=== PATIENT | male | born 1960 | race Caucasian/White ===

== ENCOUNTER 2016-10-31 12:13 | Observation (INO) | payer BC ==
--- NOTE | ~2016-10-31 | OP ---
Record Of Operation [facility] [address] [place]. [address] NAME: SEAN KIM : 62 STATUS : REG REF PAT#: [id number] AGE: 56 ADM/REG DATE : 10/31/16 MR#: [id number] REPORT SERV DATE: 10/31/16 DICTATED BY: ISHMAEL SANCHEZ DATE: 10/31/16 REPORT STATUS : Draft TRANSCRIBED BY: MODL DATE: 10/31/16 DATE OF PROCEDURE: 10/31/2016 VASCULAR PROCEDURE NOTE PROCEDURE PERFORMED: Aortogram, bilateral selective renal angiogram, left renal accessory angiogram, angioplasty and stenting of the right renal artery with placement of an 8 x 17 mm Visi-Pro stent, successful ProGlide closure of right femoral artery. HTML WEB DEVELOPER: Ishmael Sanchez M.D. INDICATION FOR THIS PROCEDURE: Hypertension, chronic kidney disease stage III. Suspected renal artery stenosis by ultrasound on the left and CT angiogram on the right. TECHNIQUE: After informed consent was obtained from Mr. Kim, he was brought to the cardiac catheterization laboratory on the afternoon of 10/31/2016 in the fasting state. Time-out was performed and correct patient and the operative plan were confirmed. Intravenous moderate sedation was used. The right coronary was prepped and draped in the usual sterile fashion. Local anesthesia was accomplished using 1% lidocaine. Using modified Seldinger technique and a micropuncture set, a micro sheath was placed in the right femoral artery with excellent arterial return. The sheath was double flushed and left in place. Femoral angiogram revealed good stick in the common femoral artery thought suitable for closure. Next, a 5-Colombian sheath was double flushed and left in place. Next, a 5- Colombian marker Flush catheter was used and a single plane abdominal aortogram was performed above the level of renal arteries. The catheter was then exchanged for a 5-Colombian SOS 2 catheter and left renal artery angiography, left accessory inferior renal angiography, and right renal angiography were performed. At that time, I decided to perform angioplasty of the right renal artery. Next, the patient was heparinized to an ACT of greater than 200. The sheath was exchanged for a 6-Colombian Arie-2 sheath. Using the 5-Colombian SOS 2 catheter, the right renal artery was engaged. A Calderon wire was used to wire the lesion. The catheter was then brought beyond the lesion site and the wire was exchanged for a Trejo wire. The catheter was then withdrawn from the body and the sheath was brought to the origin of the right renal artery. Next, a 6 mm x 20 mm Powerflex balloon was brought to the lesion site and inflation was performed with improved angiographic appearance, however, the balloon appeared undersized for the artery. Next, an 8 mm x 17 mm Visi-Pro stent was brought to the lesion site and carefully positioned. The stent was then deployed at 8 atmospheres with complete balloon expansion. The patient did experience abdominal pain with complete inflation which resolved completely with balloon deflation. Postdilatation was then performed slightly more proximal to 6 atmospheres, the balloon was then deflated and removed from the body. Followup angiography confirmed good angiographic result. There was no evidence of dissection or distal embolization. The guidewire was removed and final angiography was performed which demonstrated good angiographic result. There was a small indentation in the stent at the very origin of the right renal artery. This had a very smooth appearance. It was felt that the patient did have discomfort with peak balloon inflation, and therefore, a larger balloon was not used. Final angiograms revealed good angiographic result. The catheter was then disengaged from body over a guidewire. A Record Of [address] [place]. [address] NAME: SEAN KIM : 62 STATUS : REG REF PAT#: [id number] AGE: 56 ADM/REG DATE : 10/31/16 MR#: [id number] REPORT SERV DATE: 10/31/16 DICTATED BY: ISHMAEL SANCHEZ DATE: 10/31/16 REPORT STATUS : Draft TRANSCRIBED BY: MODL DATE: 10/31/16 ProGlide closure device was used. Hemostasis was achieved. There was no bleeding and no hematoma at the conclusion of the procedure. He was then returned to his room in good condition for access management. RESULTS: The abdominal aorta is patent. There are irregularities below the level of renal arteries. Mild calcification and mild ectasia of the infrarenal abdominal aorta. The right renal artery is patent with approximately 80% ostial stenosis with calcification. There is good washout of the right kidney. The left renal artery is patent with mild irregularities to approximately 10%. There is good washout of the top two-thirds of the left kidney. There was a smaller inferior left renal accessory artery which is widely patent which fills the bottom one-third of the left kidney. ACCESS: Six-Colombian RFA 6-Colombian Arie-2 sheath, a ProGlide closure device. ESTIMATED BLOOD LOSS: Less than 25 mL. FLUOROSCOPY TIME: 10.4 minutes, mGy of 1168. CONTRAST: 95 mL. RESULTS: 1. 80% right renal artery stenosis. 2. 10% left renal artery stenosis. 3. Widely patent left inferior renal accessory artery. 4. Successful angioplasty and stenting of the right renal artery from 80% pre to 10% post. PATIENT'S DISPOSITION: Short-stay unit. RECOMMENDATIONS: 1. Aspirin and Plavix for least one month and aspirin indefinitely. 2. Risk factor modification. LALO/MARGARETL Ishmael Sanchez M.D. / [id number] CC: Giovanna Valiente M.D. Mark Thel, M.D.
[~2016-10-31 12:13] MED LIST: ASAB PO; LOP100 PO; NORV10 PO; PRINZIDE1 TA1 PO; ZOCOR10 PO
[2016-10-31 12:59] LABS: BASOPHILS 0.3 %; BASOPHILS ABSOLUTE 0.03 10/3/uL (0.0-0.16); EOSINOPHILS 1.6 %; EOSINOPHILS ABSOLUTE 0.16 10/3/uL (0.0-0.53); HEMATOCRIT 39.7 % (40.0-51.0); HEMOGLOBIN 14.1 g/dL (13.6-17.8); IMMATURE GRANULOCYTES 0.6 %; IMMATURE GRANULOCYTES ABSOLUTE 0.06 10/3/uL (0.0-0.11); LYMPHOCYTES 33.1 %; MEAN CORPUS HGB CONC 35.5 g/dL (32.0-36.0); MEAN CORPUSCULAR HEMOGLOB 32.1 pg (26.0-34.0); MEAN CORPUSCULAR VOLUME 90.4 fL (80-100); MEAN PLATELET VOLUME 9.8 fL (9.2-13.0); MONOCYTES 7.6 %; MONOCYTES ABSOLUTE 0.78 10/3/uL (0.21-1.20); NEUTROPHILS 56.8 %; NEUTROPHILS ABSOLUTE 5.83 10/3/uL (2.02-8.40); PLATELET COUNT 295 10/3/uL (150-400); RBC DISTRIBUTION WIDTH 12.6 % (12.0-16.0); RED CELL COUNT 4.39 10/6/uL (4.7-6.1); WHITE BLOOD CELLS 10.3 10/3/uL (4.5-10.5)
[2016-10-31 13:04] LABS: MANUAL DIFF NO %
[2016-10-31 13:09] LABS: A/G RATIO 1.1 (0.7-1.9); ALBUMIN 4.1 G/DL (3.5-5.0); ALKALINE PHOSPHATASE 62 U/L (45-117); CALCIUM, SERUM 9.3 MG/DL (8.5-10.4); CHLORIDE, SERUM 107 MMOL/L (96-112); CO2 (CARBON DIOXIDE) 27 MMOL/L (24-34); CREATININE 1.18 MG/DL (0.70-1.30); GFR AFRICAN AMERICAN 80 ML/MIN (>=60); GFR NON AFRICAN AMERICAN 69 ML/MIN (>=60); GLOBULIN 3.7 G/DL (2.5-4.1); GLUCOSE, SERUM 79 MG/DL (60-99); POTASSIUM, SERUM 3.6 MMOL/L (3.5-5.3); SGOT(AST) 18 U/L (5-40); SGPT(ALT) 27 U/L (5-65); SODIUM, SERUM 143 MMOL/L (135-148); TOTAL BILIRUBIN 0.4 MG/DL (0-1.2); TOTAL PROTEIN 7.8 G/DL (6.0-8.5)
[2016-10-31 13:10] LABS: BUN (BLOOD UREA NITROGEN) 21 MG/DL (6-23)
[2016-11-01 06:00] LABS: CALCIUM, SERUM 9.3 MG/DL (8.5-10.4); CHLORIDE, SERUM 108 MMOL/L (96-112); CO2 (CARBON DIOXIDE) 24 MMOL/L (24-34); CREATININE 1.02 MG/DL (0.70-1.30); GFR AFRICAN AMERICAN 95 ML/MIN (>=60); GFR NON AFRICAN AMERICAN 82 ML/MIN (>=60); POTASSIUM, SERUM 3.8 MMOL/L (3.5-5.3); SODIUM, SERUM 143 MMOL/L (135-148)
[2016-11-01 06:02] LABS: BUN (BLOOD UREA NITROGEN) 13 MG/DL (6-23); GLUCOSE, SERUM 126 MG/DL (60-99)
[2016-11-01 07:28] LABS: ASCORBIC ACID (UR NOT ORDER) NEG (NEG); BILIRUBIN, URINE NEGATIVE (NEG); KETONE, URINE NEGATIVE (NEG); LEUKOCYTE ESTERASE(NOT OR NEG (NEG); WBC (NOT ORDERED) (RFLEX) < 1 (0-5)
[2016-11-01] MEDS ORDERED: PLAVIX PO (09:14)
== END 2016-11-01 09:45 | disposition home or self-care (01) ==
LOC: CORLMH 12:13 → SSU1 12:27
PROVIDERS: Internal Medicine Cardiovascular Disease
DX: I70.1 Atherosclerosis of renal artery (principal); I12.9 Hypertensive chronic kidney disease with stage 1 through stage 4 chronic kidney disease, or unspecified chronic kidney disease; N18.3 Chronic kidney disease, stage 3 (moderate); I15.0 Renovascular hypertension; E78.2 Mixed hyperlipidemia; Z98.890 Other specified postprocedural states; Z79.82 Long term (current) use of aspirin; Z79.899 Other long term (current) drug therapy
CPT/HCPCS: 36252; 37236; 80048; 80053; 81001; 85025; 85347; 96374; 96375; 99152; 99153; A9270-GY; C1725; C1760; C1769; C1876; C1894; G0378; J2250; J2405; J3010; Q9966; Q9967